=== PATIENT | female | born 1980 | race Caucasian/White ===

== ENCOUNTER 2016-11-08 13:57 | Emergency (ER) | payer BC, OTHER ==
[2016-11-08] MEDS ORDERED: Metoclopramide 10 MG/2 ML SDV IV ONE (15:27)
[2016-11-08] MEDS ORDERED: diphenhydrAMINE 50 MG/ML SDV IVPUSH ONE (15:27)
[2016-11-08] MEDS ORDERED: Ketorolac 30 MG/ML SDV IVPUSH ONE (15:27)
[2016-11-08] MEDS ORDERED: Sodium Chloride 0.9% 1,000 ML IV ONE (15:27)
--- NOTE | 2016-11-08 16:45 | CT ---
EXAMINATION: Non contrast CT head. Coronal and sagittal reformats. HISTORY: Pain FINDINGS: No evidence of intra or extra axial hemorrhage, mass, midline shift, hydrocephalus or edema. No hypoattenuation changes in the major vascular territories to suggest acute infarct. No abnormal intracranial calcifications are detected. No evidence of substantial vascular calcifica tions. Paranasal sinuses and mastoid air cells are well aerated without substantial findings. The orbits a nd globes are symmetric. Pituitary fossa appears unremarkable. Calvarium is intact. No evidence of skull fracture. IMPRESSION: No acute intracranial findings.
--- NOTE | 2016-11-08 17:01 | EDM.PDOC ---
[id number] Information: Reports: Patient Headache Pain Score (Numeric/FACES): 0 - Related Data Allergies Allergy/AdvReac Type Severity Reaction Status Date / Time No Known Allergies Allergy Verified 11/08/16 14:19 Home Meds: Home Meds Levothyroxine [Synthroid] 75 mcg PO ACBREAKFAST 03/30/15 [History] Past Medical History - Past Health History Medical/Surgical History: Denies Medical/Surgical History Endocrine/Metabolic History: Reports: Hypothyroidism - Infectious Disease History Infectious Disease History: Reports: Chicken Pox Social & Family History - Family History Family Medical History: Noncontributory - Tobacco Use Smoking Status *Q: Current Every Day Smoker Years of Tobacco use: 20 Packs/Tins Daily: 1 - Recreational Drug Use Recreational Drug Use: No ED ROS GENERAL - Review of Systems Review Of Systems: See Below (History of present illness) - Physical Exam Exam: See Below (History of present illness) Course - Vital Signs Last Recorded V/S: Last Vital Signs Temp 37.2 C 11/08/16 14:17 Pulse 82 11/08/16 17:14 Resp 16 11/08/16 17:14 BP 103/75 11/08/16 17:14 Pulse Ox 98 11/08/16 17:14 - Orders/Labs/Meds Meds: Medications Discontinued Medications Generic Name Dose Route Start Last Admin Trade Name Jony PRN Reason Stop Dose Admin Diphenhydramine HCl 25 mg 11/08/16 15:27 11/08/16 15:46 Benadryl IVPUSH 11/08/16 15:28 25 mg ONETIME ONE Administration Sodium Chloride 1,000 mls @ 999 mls/hr 11/08/16 15:27 11/08/16 15:45 Normal Saline IV 11/08/16 16:27 999 mls/hr STAT ONE Administration Ketorolac Tromethamine 30 mg 11/08/16 15:27 11/08/16 15:48 Toradol IVPUSH 11/08/16 15:28 30 mg ONETIME ONE Administration Metoclopramide HCl 10 mg 11/08/16 15:27 11/08/16 15:49 Reglan IV 11/08/16 15:28 10 mg ONETIME ONE Administration Departure - Departure Time of Disposition: 16:50 Disposition: Home, Self-Care 01 Clinical Impression: Headache - Discharge Information Instructions: General Headache Without Cause Referrals: PCP,None [Primary Care Provider] - Forms: ED Department Discharge Additional Instructions: The following information is given to patients seen in the emergency department who are being discharged to home. This information is to outline your options for follow-up care. We provide all patients seen in our emergency department with a follow-up referral. The need for follow-up, as well as the timing and circumstances, are variable depending upon the specifics of your emergency department visit. If you don't have a primary care physician on staff, we will provide you with a referral. We always advise you to contact your personal physician following an emergency department visit to inform them of the circumstance of the visit and for follow-up with them and/or the need for any referrals to a consulting specialist. The emergency department will also refer you to a specialist when appropriate. This referral assures that you have the opportunity for follow-up care with a specialist. All of these measure are taken in an effort to provide you with optimal care, which includes your follow-up. Under all circumstances we always encourage you to contact your private physician who remains a resource for coordinating your care. When calling for follow-up care, please make the office aware that this follow-up is from your recent emergency room visit. If for any reason you are refused follow-up, please contact the [facility] Emergency Department at and asked to speak to the emergency department charge nurse. Your symptoms today and with respect your recent headaches are suggestive of migraine headaches. However, we cannot definitively make this diagnosis today. Your CAT scan was unremarkable. Take Motrin Tylenol as needed for pain and he may find he gets some relief from Benadryl when you are having headaches. Followup with your DrCole in one to 2 days for reevaluation and further workup and treatment as needed. Return for new severe or worsening symptoms ED HPI HEADACHE COMPLAINT - General Chief Complaint: Headache Stated Complaint: HEADACHE Time Seen by Provider: 11/08/16 14:19 Source of Information: Reports: Patient History Limitations: Reports: No Limitations - History of Present Illness INITIAL COMMENTS - FREE TEXT/NARRATIVE: HISTORY AND PHYSICAL: History of present illness: [] Review of systems: As per history of present illness and below otherwise all systems reviewed and negative. Past medical history: As per history of present illness and as reviewed below otherwise noncontributory. Surgical history: As per history of present illness and as reviewed below otherwise noncontributory. Social history: No reported history of drug or alcohol abuse. Family history: As per history of present illness and as reviewed below otherwise noncontributory. Physical exam: HEENT: Atraumatic, normocephalic, pupils reactive, negative for conjunctival pallor or scleral icterus, mucous membranes moist, throat clear, neck supple, nontender, trachea midline. Lungs: Clear to auscultation, breath sounds equal bilaterally, chest nontender. Heart: S1S2, regular, negative for clicks, rubs, or JVD. Abdomen: Soft, nondistended, nontender. Negative for masses or hepatosplenomegaly. Negative for costovertebral tenderness. Pelvis: Stable nontender. Genitourinary: Deferred. Rectal: Deferred. Extremities: Atraumatic, negative for cords or calf pain. Neurovascular unremarkable. Neuro: Awake, alert, oriented. Cranial nerves II through XII unremarkable. Cerebellum unremarkable. Motor and sensory unremarkable throughout. Exam nonfocal. Diagnostics: [] Therapeutics: [] Impression: [] Plan: [] Definitive disposition and diagnosis as appropriate pending reevaluation and review of above. - Related Data Allergies/ADRs: Allergies Allergy/AdvReac Type Severity Reaction Status Date / Time No Known Allergies Allergy Verified 11/08/16 14:19 Home Meds: Home Meds Levothyroxine [Synthroid] 75 mcg PO ACBREAKFAST 03/30/15 [History] Departure - Departure Time of Disposition: 16:51 Disposition: Home, Self-Care 01 Condition: Good Clinical Impression: Headache Instructions: General Headache Without Cause Referrals: PCP,None [Primary Care Provider] - Forms: ED Department Discharge Additional Instructions: The following information is given to patients seen in the emergency department who are being discharged to home. This information is to outline your options for follow-up care. We provide all patients seen in our emergency department with a follow-up referral. The need for follow-up, as well as the timing and circumstances, are variable depending upon the specifics of your emergency department visit. If you don't have a primary care physician on staff, we will provide you with a referral. We always advise you to contact your personal physician following an emergency department visit to inform them of the circumstance of the visit and for follow-up with them and/or the need for any referrals to a consulting specialist. The emergency department will also refer you to a specialist when appropriate. This referral assures that you have the opportunity for follow-up care with a specialist. All of these measure are taken in an effort to provide you with optimal care, which includes your follow-up. Under all circumstances we always encourage you to contact your private physician who remains a resource for coordinating your care. When calling for follow-up care, please make the office aware that this follow-up is from your recent emergency room visit. If for any reason you are refused follow-up, please contact the [facility] Emergency Department at and asked to speak to the emergency department charge nurse. Your symptoms today and with respect your recent headaches are suggestive of migraine headaches. However, we cannot definitively make this diagnosis today. Your CAT scan was unremarkable. Take Motrin Tylenol as needed for pain and he may find he gets some relief from Benadryl when you are having headaches. Followup with your DrCole in one to 2 days for reevaluation and further workup and treatment as needed. Return for new severe or worsening symptoms
[2016-11-08 17:19] VITALS: BP 103/75
== END 2016-11-08 17:14 | disposition home or self-care (01) ==
LOC: MW.ED 13:57
DX: R51 Headache (principal); F17.210 Nicotine dependence, cigarettes, uncomplicated; E03.9 Hypothyroidism, unspecified
CPT/HCPCS: 70450; 96361; 96374; 96375; 99284; J1200; J1885; J2765; J7040; 99283

== ENCOUNTER 2019-06-17 09:45 | Emergency (ER) | payer OTHER, BC ==
--- NOTE | 2019-06-17 10:42 | EDM.PDOC ---
ED HPI GENERAL MEDICAL PROBLEM - General Chief Complaint: Back Pain or Injury Stated Complaint: PT FELL RIB PAIN Time Seen by Provider: 06/17/19 10:18 Source of Information: Reports: Patient History Limitations: Reports: No Limitations - History of Present Illness INITIAL COMMENTS - FREE TEXT/NARRATIVE: Presents to the emergency room reporting a fall with injury. The patient states that she was at work and carrying a heavy [place] under her left arm. As she was descending some steps her foot slipped and she fell landing on the valve that was still under her arm. Since that time she has had severe pain in the left axillary area. No shortness of breath. She does smoke. Left Back Pain Score (Numeric/FACES): 10 - Related Data Allergies Allergy/AdvReac Type Severity Reaction Status Date / Time No Known Allergies Allergy Verified 06/17/19 09:59 Home Meds: Home Meds Levothyroxine [Synthroid] 75 mcg PO ACBREAKFAST 03/30/15 [History] Diclofenac Sodium [Voltaren] 75 mg PO BIDMEALS PRN #20 tab.ec 06/17/19 [Rx] Hydrocodone/Acetaminophen [[place] 7.5-325 Tablet] 1 tab PO Q8HR PRN #20 tablet [Rx] Sertraline [Zoloft] mg PO DAILY 06/17/19 [History] Past Medical History - Past Health History Medical/Surgical History: Denies Medical/Surgical History Psychiatric History: Reports: Anxiety, Depression Endocrine/Metabolic History: Reports: Hypothyroidism - Infectious Disease History Infectious Disease History: Reports: None Social & Family History - Family History Family Medical History: Noncontributory - Tobacco Use Smoking Status *Q: Current Every Day Smoker Years of Tobacco use: 25 Packs/Tins Daily: 0.5 - Caffeine Use Caffeine Use: Reports: Coffee, Energy Drinks, Soda, Tea - Recreational Drug Use Recreational Drug Use: No ED ROS GENERAL - Review of Systems Review Of Systems: Comprehensive ROS is negative, except as noted in HPI. ED EXAM, UPPER BACK/NECK PAIN - Physical Exam Exam: See Below Exam Limited By: No Limitations General Appearance: Alert, Moderate Distress (Due to left axillary pain) Ears Exam: Normal External Exam Nose Exam: Normal Inspection Throat/Mouth Exam: Normal Inspection Head Exam: Atraumatic, Normocephalic Neck Exam: Full Range of Motion Cardiovascular/Respiratory: Other (Visit tenderness left anterior to posterior axillary lines over the sixth rib) GI/Abdominal: Soft, No Distention, Other (tenderness with guarding LUQ, left flank , left axillary 10th rib area) Back Exam: Normal Inspection. No: Paraspinal Tenderness, Vertebral Tenderness Extremities: Normal Inspection, Normal Range of Motion Course - Vital Signs Last Recorded V/S: Last Vital Signs Temp 37.3 C 06/17/19 11:56 Pulse 80 06/17/19 13:19 Resp 18 06/17/19 13:19 BP 108/60 06/17/19 13:19 Pulse Ox 95 06/17/19 13:19 - Orders/Labs/Meds Orders: Active Orders 24 hr Category Date Time Status DME for Discharge [COMM] Stat Oth 06/17/19 13:54 Ordered DME for Discharge [COMM] Stat Oth 06/17/19 13:55 Ordered Labs: Laboratory Tests 06/17/19 06/17/19 06/17/19 Range/Units 11:30 11:30 11:30 WBC 16.90 H (4.0-11.0) K/uL RBC 5.19 (4.30-5.90) M/uL Hgb 15.3 (12.0-16.0) g/dL Hct 45.8 (36.0-46.0) % MCV 88.2 (80.0-98.0) fL MCH 29.5 (27.0-32.0) pg MCHC 33.4 (31.0-37.0) g/dL RDW Std Deviation 43.3 (28.0-62.0) fl RDW Coeff of Shabbir 13 (11.0-15.0) % Plt Count 333 (150-400) K/uL MPV 9.80 (7.40-12.00) fL Nucleated RBC % 0.0 /100WBC Nucleated RBCs # 0 K/uL Sodium 137 (136-145) mmol/L Potassium 4.5 (3.5-5.1) mmol/L Chloride 102 (98-107) mmol/L Carbon Dioxide 24.6 (21.0-32.0) mmol/L BUN 11 (7.0-18.0) mg/dL Creatinine 0.8 (0.6-1.0) mg/dL Est Cr Clr Drug Dosing 85.80 mL/min Estimated GFR (MDRD) > 60.0 ml/min Glucose 107 H (74-106) mg/dL Calcium 9.1 (8.5-10.1) mg/dL HCG, Qual NEGATIVE (NEG) Meds: Medications Discontinued Medications Generic Name Dose Route Start Last Admin Trade Name Freq PRN Reason Stop Dose Admin Fentanyl 50 mcg 06/17/19 12:03 06/17/19 12:10 Sublimaze IVPUSH 06/17/19 12:04 50 mcg ONETIME ONE Administration Iopamidol 100 ml 06/17/19 13:08 06/17/19 13:08 Isovue Multipack-370 (76%) IVPUSH 06/17/19 13:09 100 ml ONETIME STA Administration Ketorolac Tromethamine 30 mg 06/17/19 13:33 Toradol IVPUSH 06/17/19 13:34 ONETIME ONE Morphine Sulfate 8 mg 06/17/19 10:43 06/17/19 10:58 Morphine IM 06/17/19 10:44 8 mg ONETIME ONE Administration Ondansetron HCl 4 mg 06/17/19 10:44 06/17/19 10:58 Zofran Odt PO 06/17/19 10:45 4 mg ONETIME ONE Administration Departure - Departure Time of Disposition: 13:57 Disposition: Home, Self-Care 01 Condition: Good Clinical Impression: Rib fractures Qualifiers: Encounter type: initial encounter Rib fracture type: multiple ribs Fracture type: closed Laterality: left Qualified Code(s): S22.42XA - Multiple fractures of ribs, left side, initial encounter for closed fracture - Discharge Information Referrals: PCP,Unknown [Primary Care Provider] - [facility] [Outside] [facility] [Outside] Forms: ED Department Discharge Additional Instructions: The following information is given to patients seen in the emergency department who are being discharged to home. This information is to outline your options for follow-up care. We provide all patients seen in our emergency department with a follow-up referral. The need for follow-up, as well as the timing and circumstances, are variable depending upon the specifics of your emergency department visit. If you don't have a primary care physician on staff, we will provide you with a referral. We always advise you to contact your personal physician following an emergency department visit to inform them of the circumstance of the visit and for follow-up with them and/or the need for any referrals to a consulting specialist. The emergency department will also refer you to a specialist when appropriate. This referral assures that you have the opportunity for follow-up care with a specialist. All of these measure are taken in an effort to provide you with optimal care, which includes your follow-up. Under all circumstances we always encourage you to contact your private physician who remains a resource for coordinating your care. When calling for follow-up care, please make the office aware that this follow-up is from your recent emergency room visit. If for any reason you are refused follow-up, please contact the [facility] Emergency Department at and asked to speak to the emergency department charge nurse. 1. Incentive spirometry 10 times every hour while awake 2. Wear rib belt 3. Diclofenac twice daily with food as needed for pain 4. [place] every 8 hours as needed for pain. No driving or operating machinery 5. Follow up in the clinic 7-10 days for [id number] 6. Do NOT smoke 7. Return promptly for fevers, shortness of breath, productive cough Sepsis Event Note - Evaluation Sepsis Screening Result: No Definite Risk - Focused Exam Vital Signs: Vital Signs Temp Pulse Resp BP Pulse Ox 06/17/19 13:19 80 18 108/60 95 06/17/19 11:56 37.3 C 76 110/50 L 95 06/17/19 10:56 73 20 148/48 H 97 06/17/19 10:00 36.6 C 77 30 H 130/59 L 97 Date Exam was Performed: 06/17/19 Time Exam was Performed: 13:57 - My Orders Last 24 Hours: My Active Orders 06/17/19 13:54 DME for Discharge [COMM] Stat 06/17/19 13:55 DME for Discharge [COMM] Stat - Assessment/Plan Last 24 Hours: My Active Orders 06/17/19 13:54 DME for Discharge [COMM] Stat 06/17/19 13:55 DME for Discharge [COMM] Stat
[2019-06-17] MEDS ORDERED: Morphine 10 MG/ML Syringe IM ONE (10:43)
[2019-06-17] MEDS ORDERED: Ondansetron 4 MG Tab.DIS PO ONE (10:44)
--- NOTE | 2019-06-17 10:48 | CR ---
EXAM DATE: 06/17/19 PATIENT'S AGE: 38 Chest and left ribs: Frontal view of the chest was obtained as well as four views of the left ribs. Comparison: Prior chest x-ray of 02/16/17. Heart size and mediastinum are normal. Lungs are clear. No acute fracture or other left sided rib abnormality is appreciated. Impression: 1. No discrete left-sided rib abnormality is appreciated. 2. Accompanying chest x-ray shows nothing acute. Diagnostic code #2 This report was dictated in [place] [employer] Time Report Signed by Proxy MTDColleen
[2019-06-17 12:00] LABS: BLOOD UREA NITROGEN,BUN 11 mg/dL (7.0-18.0); CARBON DIOXIDE,CO2 24.6 mmol/L (21.0-32.0); CHLORIDE,CL 102 mmol/L (98-107); GLUCOSE RANDOM 107 mg/dL (74-106); POTASSIUM,K 4.5 mmol/L (3.5-5.1); SODIUM,NA 137 mmol/L (136-145)
[2019-06-17] MEDS ORDERED: fentaNYL 100 MCG/2 ML SDV IVPUSH ONE (12:03)
[2019-06-17] MEDS ORDERED: Iopamidol 755 MG/ML 500 ML Multipack Bottle IVPUSH STA (13:08)
--- NOTE | 2019-06-17 13:26 | CT ---
INDICATION: Trauma, fall. TECHNIQUE: CT chest, abdomen and pelvis acquired with 100 cc Isovue 370 IV contrast. COMPARISON: None. FINDINGS: CHEST: Cardiovascular structures: Heart size is normal. Thoracic aorta and main pulmonary artery are normal in caliber. Mediastinum and junior: No mass or adenopathy. Lungs and pleura: Minimal bibasilar atelectasis. Lungs and pleural spaces are otherwise clear. No pneumothorax. Chest wall and axilla: No mass or adenopathy. Bones: Acute fractures are present in the posterior left 8th, 9th and 10th ribs. The 9th rib fracture is moderately displaced. ABDOMEN AND PELVIS: Liver: Unremarkable. No sign of acute injury. Gallbladder and bile ducts: Unremarkable. Pancreas: Unremarkable. Spleen: Unremarkable. No sign of acute injury. Adrenal glands: Unremarkable. Kidneys: Unremarkable. GI tract: Unremarkable. Vascular structures: Unremarkable. Mesenteric arteries are patent. Lymph nodes: Unremarkable. Miscellaneous: Unremarkable. No free air or significant free fluid. Pelvic Organs: Unremarkable. Bones: No acute fracture or dislocation. IMPRESSION: Acute fractures present in the posterior left 8th, 9th and 10th ribs. No other sign of acute injury or disease in the chest, abdomen or pelvis. Please note that all CT scans at this facility use dose modulation, iterative reconstruction, and/or weight-based dosing when appropriate to reduce radiation dose to as low as reasonably achievable. Dictated by Jeanmarie Hoang MD @ Jun 17 2019 1:10PM Signed by Dr. Jeanmarie Hoang @ Jun 17 2019 1:24PM
[2019-06-17] MEDS ORDERED: Ketorolac 30 MG/ML SDV IVPUSH ONE (13:33)
[2019-06-17 14:32] VITALS: BP 118/55; PULSE 73
== END 2019-06-17 14:30 | disposition home or self-care (01) ==
LOC: MW.ED 09:45
DX: S22.42XA Multiple fractures of ribs, left side, initial encounter for closed fracture (principal); F41.9 Anxiety disorder, unspecified; F32.9 Major depressive disorder, single episode, unspecified; E03.9 Hypothyroidism, unspecified; F17.210 Nicotine dependence, cigarettes, uncomplicated; Z79.899 Other long term (current) drug therapy; W10.9XXA Fall (on) (from) unspecified stairs and steps, initial encounter; Y99.0 Civilian activity done for income or pay
CPT/HCPCS: 36415; 71101; 71260; 74177; 80048; 84703; 85027; 96372; 96374; 96375; 99284; A9270; J1885; J2270; J3010; Q9967; 99283